=== PATIENT | female | born 1945 | race Caucasian/White ===

== ENCOUNTER 2018-09-23 01:31 | Observation (INO) ==
[2018-09-23 03:35] LABS: Basophils # 0.1 K/mcL (0.0-0.2); Eosinophils # 0.3 K/mcL (0.0-0.6); Hematocrit 35.9 % (35.3-44.9); Hemoglobin 11.5 g/dL (11.5-15.4); Immature Granulocytes % 0.4 % (0-4); Lymphocytes # 1.1 K/mcL (0.6-4.6); Lymphocytes % 14.4 %; Mean Corpuscular Hemoglobin 31.6 pg (28.0-33.3); Mean Corpuscular Volume 98.6 fL (83.0-100.0); Mean Platelet Volume 12.2 fL (9.4-12.4); Monocytes # 0.8 K/mcL (0.0-1.3); Neutrophils # 5.4 K/mcL (1.6-8.9); Platelet Count 159 K/mcL (140-400); Red Blood Count 3.64 M/mcL (3.82-4.97); Red Cell Distribution Width 14.2 % (11.5-14.5); Segmented Neutrophils % 70.2 %
[2018-09-23 03:44] LABS: INR 1.1; Prothrombin Time 12.5 Seconds (9.4-12.1)
[2018-09-23 03:46] LABS: Activated Partial Thrombo Time 29.4 Seconds (26.0-36.0)
[2018-09-23 03:54] LABS: Alanine Aminotransferase 8 Units/L (7-52); Albumin 3.6 g/dL (3.5-5.7); Albumin/Globulin Ratio 1.3 (1.1-2.2); Alkaline Phosphatase 55 Units/L (34-104); Aspartate Amino Transferase 17 Units/L (13-39); BUN/Creatinine Ratio 27 (6-26); Bilirubin,Total 0.6 mg/dL (0.3-1.0); Blood Urea Nitrogen 21 mg/dL (8-23); Calcium 9.4 mg/dL (8.6-10.3); Carbon Dioxide 28 mEq/L (23-29); Chloride 104 mEq/L (98-107); Globulin 2.7 g/dL (2.4-3.5); Glucose 118 mg/dL (70-105); Magnesium 1.9 mg/dL (1.6-2.6); Osmolality,Calculated 290 (280-300); Potassium 3.7 mEq/L (3.5-5.1); Sodium 138 mEq/L (136-145); Total Protein 6.3 g/dL (6.4-8.9); eGFR For Non-African Americans > 60 (> 60)
[2018-09-23] MEDS: Ipratropium/Albuterol Neb 3 ML IH PRN ×2 (04:02→11:04)
[2018-09-23] MEDS ORDERED: Naloxone 0.4 MG/ML INJ IVP PRN (08:10)
[2018-09-23] MEDS ORDERED: Albuterol 2.5 MG/3 ML NEBULIZER IH PRN (08:11)
[2018-09-23] MEDS: Aspirin 81 MG TAB.CHEW PO SCH (08:50)
[2018-09-23] MEDS ORDERED: hydroCHLOROthiazide 25 MG TABLET PO SCH (09:00)
[2018-09-23] MEDS ORDERED: traMADol 50 MG TABLET PO ONE (10:21)
--- NOTE | 2018-09-23 10:33 | Electrocardiograph Report ---
[place] [id number] Test Date: 2018-09-23 Pat Name: Radha Long Department: 110 Room: 05 Gender: F Sheet Metal Apprentice: : 1945 Requested By: Norberto James Order Number: [id number] Reading MD: Adalberto Acosta Measurements Intervals [place] Rate: 65 P: 95 IN: 138 QRS: 55 QRSD: 114 T: 124 QT: 455 QTc: 466 Interpretive Statements SINUS RHYTHM LEFT VENTRICULAR HYPERTROPHY AND ST-T CHANGE Electronically Signed On 09-23-2018 10:31:18 EDT by Adalberto Acosta
--- NOTE | 2018-09-23 12:22 | Internal Med History&Physical ---
Date of Encounter: 09/23/18 Time of Encounter: 09:00 Internal Medicine - H&P: HPI Chief complaint: SOB Admitted From: Emergency Dept History of present illness: Ms. Long is a 73 year old female with history of HFrEF, CAD, COPD/asthma, hypertension, who presented to the outside hospital ED with progressively worsening dyspnea. Associated with orthopnea, ankle swelling, and fatigue. Was worsening for the last week or so. She was recently hospitalized at [facility] ~ 3 weeks ago for similar symptoms. Denies any chest pain, fever/chills, cough, sputum production, palpitation, nausea/vomiting, diaphoresis, abdominal pain, change in bowel habits, or dysuria. Patient states that she is allergic to any loop diuretics in the form of angioedema. At the outside hospital ED, she was afebrile and hemodynamically stable. Saturating 96% on 2-3L of O2. Was briefly placed on BiPaP due to tachypnea but did not tolerate well. Workup showed elevated troponin and BNP of 0.16 and 1549 respectively. Normal WBC. EKG showed atrial paced rhythm without ST-T change concerning for ischemia. CTA of the chest did not demonstrate any evidence of pulmonary embolism but it did show findings compatible with pulmonary edema as well as focal nodule in the right lower lobe. She was loaded with aspirin and given nitroglycerin at the ED and transferred to [facility] for further management. Past Med Surg Social Fam HX - Past Medical History Medical history: cardiomyopathy, CHF, COPD, coronary artery disease, hyperlipidemia, hypertension, myocardial infarction Additional medical history: BRADYCARDIA s/p pacemaker Psychiatric history: anxiety, depression - Past Surgical History Surgical History: hysterectomy, pacemaker/AICD, other - Social History Smoking Status: Light tobacco smoker Smokeless Tobacco Status: No Alcohol use: none Drug use: none - Family History Mother Living Status: Internal Medicine - H&P: Meds Albuterol Neb [Proventil Neb] 2.5 mg IH Q4-6H PRN 03/12/16 [History] Albuterol Sulfate [Ventolin Hfa] 1 puff IH Q4-6H PRN 03/12/16 [History] Aspirin 81 mg PO DAILY 03/12/16 [History] Cholecalciferol (Vitamin D3) [Vitamin D3] 10,000 unit PO QWEEK 03/12/16 [History] hydroCHLOROthiazide [Hydrochlorothiazide] 25 mg PO DAILY 03/12/16 [History] Fluticasone/Salmeterol [Advair 250-50 Diskus] 1 each IH BID #1 blst.w.dev 03/15/16 [Rx] Alendronate Sodium 70 mg PO QWEEK 09/22/18 [History] Docusate [Colace] 100 mg PO DAILY 09/22/18 [History] Losartan [Cozaar] 25 mg PO DAILY 09/22/18 [History] Metoprolol [Lopressor] 12.5 mg PO DAILY 09/22/18 [History] Nitroglycerin [Nitrostat] 0.4 mg SL AD 09/22/18 [History] Ranitidine HCl [Zantac] 300 mg PO HS 09/22/18 [History] Allergy/AdvReac Type Severity Reaction Status Date / Time amlodipine Allergy Anaphylaxis Verified 03/12/16 12:40 codeine Allergy Anaphylaxis Verified 03/12/16 12:40 furosemide [From Lasix] Allergy Anaphylaxis Verified 09/22/18 17:20 lisinopril Allergy Anaphylaxis Verified 03/12/16 12:40 oxycodone [Oxycodone] Allergy Anaphylaxis Verified 03/12/16 12:40 morphine AdvReac Nausea Verified 03/12/16 18:49 All Systems PM: A 10-system review of systems was performed and is negative for pertinent findings except as documented above in the HPI. - Constitutional Vitals: Temp Pulse Resp BP Pulse Ox 98.1 F 64 18 119/72 90 09/23/18 11:41 09/23/18 11:41 09/23/18 11:41 09/23/18 11:41 09/23/18 11:41 Exam: General: Alert and oriented, mild distress. HEENT:EOMI, pupils equal, round and reactive. Cardiovascular:Normal S1 & S2, elevated JVD. Pulse regular. Lungs: Basilar crackles with pitting edema around her ankles bilaterally Abdomen:Soft, non-tender, no rigidity. Extremities:No deformity or swelling Neurological:Normal cognition and motor skills. Non-focal Skin:Normal color, no rash, no lesions. Pulses:Carotid and radial pulses normal +2. Rest of the physical exam is non contributory Internal Med - H&P Results - Labs CBC & Chem 7: 09/23/18 03:13 09/23/18 03:13 Labs: Short CBC 09/23/18 Range/Units 03:13 WBC 7.7 (4.3-11.1) K/mcL Hgb 11.5 (11.5-15.4) g/dL Hct 35.9 (35.3-44.9) % Plt Count 159 (140-400) K/mcL Neutrophils # 5.4 (1.6-8.9) K/mcL BMP 09/23/18 03:13 Sodium 138 Potassium 3.7 Chloride 104 Carbon Dioxide 28 BUN 21 Creatinine 0.78 Glucose 118 H Calcium 9.4 Cardiac Enzymes 09/23/18 09/23/18 Range/Units 03:13 09:58 Troponin I 0.13 H* 0.12 H* (< 0.04) ng/mL Liver Function 09/23/18 Range/Units 03:13 Total Bilirubin 0.6 (0.3-1.0) mg/dL AST 17 (13-39) Units/L ALT 8 (7-52) Units/L Alkaline Phosphatase 55 (34-104) Units/L Albumin 3.6 (3.5-5.7) g/dL - Impressions ITS Impressions Chest X-Ray 09/23/18 02:43 IMPRESSION: Increasing pulmonary edema. D/ / Leonel Ram MD / Leonel Ram MD Interpreting Provider: Leonel Ram MD - Assessment and Plan (1) Acute respiratory failure with hypoxia Current Visit: Yes Status: Acute Assessment and plan: Likely due to decompensated heart failure as below. Less likely to be due to pneumonia or exacerbation of COPD/asthma given her lack of fever, leukocytosis, or significant wheezing/rhonchi on exam mx as per below (2) Acute decompensated heart failure Current Visit: Yes Status: Acute Assessment and plan: CXR/CT finding as well as elevated BNP raises concern for decompensated heart failure allergic to loop diuretics in the form of angioedema on HCTZ at home, continue. Will also add aldactone resume bb. Hold off on losartan to allow for additional diuretics in view of borderline BP troponin elevation likely due to demand ischemia from hypoxic respiratory failure, trending down check echocardiogram fluid restrict 1.5L/day, strict I/O obtain old records from [facility] regarding the recent admission cardiology consult (3) Elevated troponin Current Visit: Yes Status: Acute Assessment and plan: Likely demand ischemia, troponin trended down from 0.16-0.12 EKG atrial paced rhythm continue ASA check echo as above (4) CAD (coronary artery disease) Current Visit: No Status: Chronic Assessment and plan: Resume home meds ?Unsure why patient is not on statin. To follow up on old records Qualifiers: Coronary Disease-Associated Artery/Lesion type: [place] artery [place] vs. transplanted heart: [place] heart Associated angina: without angina Qualified Code(s): I25.10 - Atherosclerotic heart disease of [place] coronary artery w ithout angina pectoris (5) COPD (chronic obstructive pulmonary disease) Current Visit: No Status: Chronic Assessment and plan: Does not appear to be in exacerbation. PRN duoneb and resume home inhalers once reconciled Qualifiers: COPD type: emphysema Emphysema type: unspecified Qualified Code(s): J43.9 - Emphysema, unspecified (6) DVT prophylaxis Current Visit: Yes Status: Acute Assessment and plan: SQ heparin - Time Spent With Patient Total time spent is greater than 50% in coordination of care (as documented) at patient's floor/unit and/or counseling patient: Greater than 35 minutes
[2018-09-23] MEDS: Spironolactone 25 MG TABLET PO SCH (15:14)
[2018-09-23] MEDS: *HR* Heparin 5,000 UNIT/ML VIAL SQ SCH (17:21)
[2018-09-23] MEDS: Famotidine 20 MG TABLET PO SCH (20:06)
[2018-09-24] MEDS: traMADol 50 MG TABLET PO PRN (00:47)
[2018-09-24] MEDS: Ipratropium/Albuterol Neb 3 ML IH PRN ×3 (00:53→13:39)
[2018-09-24 05:10] LABS: Basophils # 0.1 K/mcL (0.0-0.2); Basophils % 1.1 %; Eosinophils # 0.6 K/mcL (0.0-0.6); Eosinophils % 8.5 %; Hematocrit 35.1 % (35.3-44.9); Hemoglobin 11.2 g/dL (11.5-15.4); Immature Granulocytes % 0.3 % (0-4); Lymphocytes # 1.2 K/mcL (0.6-4.6); Lymphocytes % 16.4 %; Mean Corpuscular HGB Conc 31.9 g/dL (31.6-35.5); Mean Corpuscular Hemoglobin 32.1 pg (28.0-33.3); Mean Corpuscular Volume 100.6 fL (83.0-100.0); Mean Platelet Volume 12.6 fL (9.4-12.4); Monocytes # 0.8 K/mcL (0.0-1.3); Monocytes % 10.7 %; Neutrophils # 4.8 K/mcL (1.6-8.9); Platelet Count 154 K/mcL (140-400); Red Blood Count 3.49 M/mcL (3.82-4.97); Red Cell Distribution Width 14.3 % (11.5-14.5)
[2018-09-24 05:30] LABS: BUN/Creatinine Ratio 31 (6-26); Blood Urea Nitrogen 26 mg/dL (8-23); Calcium 9.2 mg/dL (8.6-10.3); Carbon Dioxide 28 mEq/L (23-29); Chloride 105 mEq/L (98-107); Glucose 111 mg/dL (70-105); Osmolality,Calculated 295 (280-300); Potassium 4.1 mEq/L (3.5-5.1); Sodium 140 mEq/L (136-145); eGFR For Non-African Americans > 60 (> 60)
[2018-09-24] MEDS: *HR* Heparin 5,000 UNIT/ML VIAL SQ SCH ×2 (06:51→16:55)
[2018-09-24] MEDS: Aspirin 81 MG TAB.CHEW PO SCH (08:47)
[2018-09-24] MEDS: Spironolactone 25 MG TABLET PO SCH (08:47)
[2018-09-24] MEDS: hydroCHLOROthiazide 25 MG TABLET PO SCH ×2 (10:18→20:09)
--- NOTE | 2018-09-24 12:22 | Internal Med Progress Note ---
Hospitalist Progress Note - Encounter Date of Encounter: 09/24/18 Time of Encounter: 10:45 - Subjective Interval History: States that her breathing is about the same although her ankles feel less swollen today. No fever/chills or nausea/vomiting. - Exam Vitals: Temp Pulse Resp BP Pulse Ox 98.3 F 60 18 106/61 96 09/24/18 11:14 09/24/18 11:14 09/24/18 11:14 09/24/18 11:14 09/24/18 11:14 Exam: General: Alert and oriented, appears less anxious than yesterday Cardiovascular:Normal S1 & S2, Pulse regular. Lungs: Basilar crackles with pitting edema around her ankles bilaterally which is less prominent Abdomen:Soft, non-tender, no rigidity. Neurological:Normal cognition and motor skills. Non-focal - Assessment and Plan (1) Acute respiratory failure with hypoxia Current Visit: Yes Status: Acute Assessment and Plan: Likely due to decompensated heart failure as below. Less likely to be due to pneumonia or exacerbation of COPD/asthma given her lack of fever, leukocytosis, or significant wheezing/rhonchi on exam mx as per below (2) Acute decompensated heart failure Current Visit: Yes Status: Acute Assessment and Plan: CXR/CT finding as well as elevated BNP raises concern for decompensated heart failure allergic to loop diuretics in the form of angioedema on HCTZ 25mg QD at home. Will increase to BID Aldactone added yesterday resume bb. Hold off on losartan to allow for additional diuretics in view of borderline BP troponin elevation likely due to demand ischemia from hypoxic respiratory failure, flat and adynamic echocardiogram showed EF 35-40% with severe LV diastolic dysfunction and global LV systolic dysfunction fluid restrict 1.5L/day, strict I/O obtain old records from [facility] regarding the recent admission follow with cardiology (3) Elevated troponin Current Visit: Yes Status: Acute Assessment and Plan: Likely demand ischemia, troponin trended down from 0.16-0.12 EKG atrial paced rhythm continue ASA echo finding as above (4) CAD (coronary artery disease) Current Visit: No Status: Chronic (5) COPD (chronic obstructive pulmonary disease) Current Visit: No Status: Chronic Assessment and Plan: Does not appear to be in exacerbation. Resume home inhalers (6) DVT prophylaxis Current Visit: Yes Status: Acute Assessment and Plan: SQ heparin - Time Spent with Patient Total time spent is greater than 50% in coordination of care (as documented) at patient's floor/unit and/or counseling patient: 25 - 35 minutes Plan of Care Discussed with: patient (discussed with RN and pharmacist) Internal Medicine: Result - Labs CBC & Chem 7: 09/24/18 04:38 09/24/18 04:38 Labs: Short CBC 09/24/18 Range/Units 04:38 WBC 7.6 (4.3-11.1) K/mcL Hgb 11.2 L (11.5-15.4) g/dL Hct 35.1 L (35.3-44.9) % Plt Count 154 (140-400) K/mcL Neutrophils # 4.8 (1.6-8.9) K/mcL BMP 09/24/18 04:38 Sodium 140 Potassium 4.1 Chloride 105 Carbon Dioxide 28 BUN 26 H Creatinine 0.85 Glucose 111 H Calcium 9.2 - ABG Interpretation ABG results: PT/INR, D-dimer PT 12.5 Seconds (9.4-12.1) H 09/23/18 03:13 - Impressions Impressions Echocardiogram 09/23/18 02:42 Impressions: LVEF 35-40%. Normal LV chamber size, wall thickness. Severe left ventricular diastolic dysfunction. Global left ventricular systolic dysfunction. Grossly normal right ventricular structure and function. Mild mitral regurgitation. Unable to estimate RVSP due to lack of TR jet. A device lead was visualized in the right atrium and right ventricle. Left Ventricular Wall Motion: Rest Echo Findings The apex, apical inferior, mid inferior, basal inferior, apical anterior, mid anterior, basal anterior, apical septal, mid inferior septal, basal inferior septal, apical lateral, mid anterior lateral, basal anterior lateral, mid anterior septal, mid inferior lateral, basal anterior septal and basal inferior lateral alvarado were hypokinetic. Findings: Study Quality * Technically sub-optimal due to poor echocardiographic windows. ECG Findings * Normal sinus rhythm. Left Ventricle * LVEF 35-40%. * Normal LV chamber size, wall thickness. * Severe left ventricular diastolic dysfunction. * Global left ventricular systolic dysfunction. Right Ventricle * Grossly normal right ventricular structure and function. Left Atrium * Severely dilated left atrium. Right Atrium * Mildly dilated right atrium. Aortic Valve * Trileaflet aortic valve. * Mildly sclerotic aortic valve leaflets. * No aortic regurgitation. * No aortic stenosis. Mitral Valve * Moderate mitral annular calcification * Mildly thickened mitral valve leaflets. * Mild mitral regurgitation. * No mitral stenosis. Tricuspid Valve * Normal tricuspid valve structure and function. * No tricuspid regurgitation. * Unable to estimate RVSP due to lack of TR jet. Pulmonic Valve * Normal pulmonic valve structure. * Mild pulmonic regurgitation. Aorta * Normally sized aortic root. Pericardium * The pericardium appears normal. IVC * The IVC is not dilated. * < 50% respiratory change. Pulmonary Artery * Pulmonary artery not well visualized. Device lead * A device lead was visualized in the right atrium and right ventricle. Consult Discharge Plan - Plan Referrals: Fernanda Bender MD [Primary Care Provider] - 10/05/18 10:30 am (4) CAD (coronary artery disease) Qualifiers: Coronary Disease-Associated Artery/Lesion type: [place] artery [place] vs. transplanted heart: [place] heart Associated angina: without angina Qualified Code(s): I25.10 - Atherosclerotic heart disease of [place] coronary artery without angina pectoris (5) COPD (chronic obstructive pulmonary disease) Qualifiers: COPD type: emphysema Emphysema type: unspecified Qualified Code(s): J43.9 - Emphysema, unspecified
[2018-09-24] MEDS ORDERED: Fluticasone Propionate Nasal 50 MCG/SPRAY BOTTLE NS PRN (12:23)
--- NOTE | 2018-09-24 13:19 | Cardiology Consult Note ---
Addendum entered and electronically signed by Harsh Luciano CNP 09/24/18 14:14: Clarification of below, mild troponin elevation in the setting of CHF, COPD exacerbation. Likely demand ischemia. Recent TTE at [facility] showed EF at 25-30%, known ICMP. No further testing at this time. Original Note: <Harsh Luciano - Last Filed: 09/24/18 13:12> Date of Encounter: 09/24/18 Time of Encounter: 13:12 Assessment and Plan (1) Congestive heart failure Current Visit: No Status: Acute Acute on chronic systolic and diastolic CHF. Per [facility] record EF 25-30 %. ICD in place. Likely exacerbated by high salt intake at home. She is eating only microwavable meals. She also did not take prescribed lasix due to concern for allergic reaction. CXR this admit shows increasing pulmonary edema. Hospitalized one month ago at [facility] for CHF. Reports reviewed. She was given IV lasix and discharged home with RX. 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 There is no mention of allergy. Currently on aldactone and HCTZ home medications. Increase aldactone. Net negative 660ml for 24 hours. Consider adding alternative medication such as bumex if needed due to patient concerns. Low sodium diet stressed. Strict I&O and daily weights. Please call with questions or concerns. Patient follows with Dr. Skinner. F/u will be arranged. Qualifiers: Heart failure type: combined systolic and diastolic Heart failure chronicity: acute on chronic Qualified Code(s): I50.43 - Acute on chronic combined systolic (congestive) and diastolic (congestive) heart failure (2) CAD (coronary artery disease) Current Visit: No Status: Chronic H/o CAD Last [facility] in 2013 with mild to moderate non obstructive CAD. No intervention. Atypical chest pain symptoms. EKG shows SR with LVH. No change from EKG in 2017. Troponin negative. Continue asa, statin, and bb. Per [facility] EF 30-35%. Qualifiers: Coronary Disease-Associated Artery/Lesion type: [place] artery [place] vs. transplanted heart: [place] heart Associated angina: without angina Qualified Code(s): I25.10 - Atherosclerotic heart disease of [place] coronary artery without angina pectoris (3) Afib Current Visit: No Status: Acute H/o afib. Per [facility] reports sotalol discontinued due to runs of NSVT. Currently NSR on metoprolol. Patient declined anticoagulation in past and continues to decline. Follows with Dr. Skinner. Qualifiers: Atrial fibrillation type: paroxysmal Qualified Code(s): I48.0 - Paroxysmal atrial fibrillation Discussion w patient/family: The assessment and plan as outlined above was discussed with the patient and/or family members who expressed understanding and agreement. All questions were answered. Thank you for involving us in the care of your patient. Please call with any questions. History of Present Illness Consult date: 09/24/18 Requesting physician: Carson Bansal Consult reason: CHF with loop diuretic allergy Chief complaint: SOB, orthopnea, BLE edema History of present illness: Ms. Long is a 73 year old female with past medical history of CAD, systolic/diastolic CHF, ICD, and atrial fibrillation. She presented from home with the c/o increasing SOB, orthopnea, and BLE edema for one week. SHe was at her urologist office to discuss urinary retention and was recommended to go to ED for concern for CHF. She also c/o intermittent sharp stabbing chest pains lasting a few seconds at a time since admission. She thinks she had tounge and throat swelling with lasix one year ago. She says she feels her throat feels a little edematous now and asks why we are giving it to her here. I reassured her she did not receive lasix here. She was hospitalized one month ago at [facility] for CHF and pnuemonia. [facility] discharge summary reviewed. She was successfully diuresed with lasix and discharged home on oral lasix. When reviewed with patient she is not sure if she was taking and said "they were trying to hide it from me." She states that she is eating TV dinners everyday but try to avoid added salt. Past Med Surg Social Fam HX - Past Medical History Medical history: atrial fibrillation, cardiomyopathy, CHF, COPD, coronary artery disease, hyperlipidemia, hypertension, myocardial infarction Additional medical history: BRADYCARDIA s/p pacemaker Psychiatric history: anxiety, depression - Past Surgical History Surgical History: hysterectomy, pacemaker/AICD, other - Social History Smoking Status: Light tobacco smoker Smokeless Tobacco Status: No Alcohol use: none Drug use: none - Family History Mother Living Status: Medications and Allergies Albuterol Neb [Proventil Neb] 2.5 mg IH Q4-6H PRN 08/31/16 [History] Albuterol Sulfate [Ventolin Hfa] 1 puff IH Q4-6H PRN 03/12/16 [History] Aspirin 81 mg PO DAILY 03/12/16 [History] Cholecalciferol (Vitamin D3) [Vitamin D3] 10,000 unit PO TU 03/12/16 [History] hydroCHLOROthiazide [Hydrochlorothiazide] 25 mg PO DAILY 03/12/16 [History] Alendronate Sodium 70 mg PO TH 09/22/18 [History] Docusate [Colace] 100 mg PO HS 09/22/18 [History] Losartan [Cozaar] 25 mg PO DAILY 09/22/18 [History] Metoprolol [Lopressor] 12.5 mg PO DAILY 09/22/18 [History] Nitroglycerin [Nitrostat] 0.4 mg SL AD 09/22/18 [History] Ranitidine HCl [Zantac] 300 mg PO HS 09/22/18 [History] Fluticasone Propionate Nasal [Flonase] 2 spr NS DAILY PRN 09/24/18 [History] Allergy/AdvReac Type Severity Reaction Status Date / Time amlodipine Allergy Anaphylaxis Verified 09/24/18 09:33 codeine Allergy Anaphylaxis Verified 09/24/18 09:33 furosemide [From Lasix] Allergy Anaphylaxis Verified 09/22/18 17:20 lisinopril Allergy Anaphylaxis Verified 09/24/18 09:33 oxycodone [Oxycodone] Allergy Anaphylaxis Verified 09/24/18 09:33 morphine AdvReac Nausea Verified 09/24/18 09:33 All Systems Review: The remainder of the systems were reviewed and are negative Physical Examination Vital Signs, Last 4 Hours Temp Pulse Resp BP Pulse Ox 09/24/18 11:14 98.3 F 60 18 106/61 96 General: Conversant, No Apparent Distress HEENT: Atraumatic, Normocephaly, Mucus Membranes Moist Neck: No JVD, Normal carotid pulses Cardiac: Reg Rate and Rhythm, Normal S1 and S2, No Murmur Lungs: Normal Breath Sounds, No Wheeze, Rales, Rhonchi Neuro: Alert and responsive, No focal deficits noted Abdomen: Soft, Non-Tender Skin: No rashes noted on visualized skin Musculoskeletal: No Chest Wall Tenderness Extremities: No Clubbing, No Cyanosis, Normal Pulses, Other (Trace to 1+ pitting ankle edema) Results 09/24/18 04:38 09/24/18 04:38 Lab Results 09/24/18 09/24/18 04:38 04:38 WBC 7.6 Hgb 11.2 L Hct 35.1 L Plt Count 154 Sodium 140 Potassium 4.1 Chloride 105 Carbon Dioxide 28 BUN 26 H Creatinine 0.85 Glucose 111 H Calcium 9.2 Magnesium 2.0 - Imaging and Cardiology Echo: report reviewed - EKG Interpretation EKG results cardiology: personally reviewed Consult Discharge Plan - Plan Referrals: Fernanda Bender MD [Primary Care Provider] - 10/05/18 10:30 am <Key Llanos - Last Filed: 09/24/18 16:12> Date of Encounter: 09/24/18 - Attending Attestation I examined this patient and my medical decision-making was reviewed with the ASSISTANT BRANCH OPERATIONS MANAGER. I agree with the documented findings, disposition and treatment plan as described. Assessment and Plan Discussion w patient/family: The assessment and plan as outlined above was discussed with the patient and/or family members who expressed understanding and agreement. All questions were answered. Thank you for involving us in the care of your patient. Please call with any questions. History of Present Illness History of present illness: Ms. Long is a 73 year old female All Systems Review: The remainder of the systems were reviewed and are negative Physical Examination Vital Signs, Last 4 Hours Resp Pulse Ox 09/24/18 13:43 18 96 Results 09/24/18 04:38 09/24/18 04:38 Lab Results 09/24/18 09/24/18 04:38 04:38 WBC 7.6 Hgb 11.2 L Hct 35.1 L Plt Count 154 Sodium 140 Potassium 4.1 Chloride 105 Carbon Dioxide 28 BUN 26 H Creatinine 0.85 Glucose 111 H Calcium 9.2 Magnesium 2.0
[2018-09-24] MEDS ORDERED: Spironolactone 25 MG TABLET PO ONE (13:40)
[2018-09-24] MEDS: Famotidine 20 MG TABLET PO SCH (20:09)
[2018-09-25] MEDS: traMADol 50 MG TABLET PO PRN (01:42)
[2018-09-25] MEDS: Ipratropium/Albuterol Neb 3 ML IH PRN (05:20)
[2018-09-25] MEDS: *HR* Heparin 5,000 UNIT/ML VIAL SQ SCH ×2 (05:38→18:04)
[2018-09-25 06:56] LABS: Hematocrit 35.1 % (35.3-44.9); Hemoglobin 11.4 g/dL (11.5-15.4); Mean Corpuscular HGB Conc 32.5 g/dL (31.6-35.5); Mean Corpuscular Hemoglobin 32.2 pg (28.0-33.3); Mean Corpuscular Volume 99.2 fL (83.0-100.0); Mean Platelet Volume 12.3 fL (9.4-12.4); Platelet Count 146 K/mcL (140-400); Red Blood Count 3.54 M/mcL (3.82-4.97); Red Cell Distribution Width 13.7 % (11.5-14.5)
[2018-09-25 07:16] LABS: BUN/Creatinine Ratio 32 (6-26); Blood Urea Nitrogen 28 mg/dL (8-23); Calcium 9.6 mg/dL (8.6-10.3); Carbon Dioxide 31 mEq/L (23-29); Chloride 101 mEq/L (98-107); Glucose 116 mg/dL (70-105); Magnesium 2.1 mg/dL (1.6-2.6); Osmolality,Calculated 294 (280-300); Potassium 4.2 mEq/L (3.5-5.1); Sodium 139 mEq/L (136-145); eGFR For Non-African Americans > 60 (> 60)
[2018-09-25] MEDS: hydroCHLOROthiazide 25 MG TABLET PO SCH ×2 (09:07→19:46)
[2018-09-25] MEDS: Spironolactone 25 MG TABLET PO SCH (09:08)
[2018-09-25] MEDS: Aspirin 81 MG TAB.CHEW PO SCH (09:08)
[2018-09-25] MEDS ORDERED: predniSONE 20 MG TABLET PO SCH (10:00)
[2018-09-25] MEDS: Ipratropium/Albuterol Neb 3 ML IH SCH ×3 (11:06→21:25)
[2018-09-25 11:16] LABS: Adenovirus Not Detected (Not Detect); Bordetella Pertussis Not Detected (Not Detect); Chlamydophila pneumoniae Not Detected (Not Detect); Coronavirus 229E Not Detected (Not Detect); Coronavirus HKU1 Not Detected (Not Detect); Coronavirus NL63 Not Detected (Not Detect); Coronavirus OC43 Not Detected (Not Detect); Human Metapneumovirus Not Detected (Not Detect); Human Rhinovirus/Enterovirus Not Detected (Not Detect); Influenza A Subtype 2009 H1 Not Detected (Not Detect); Influenza A Untypeable Not Detected (Not Detect); Influenza B Not Detected (Not Detect); Mycoplasma pneumoniae Not Detected (Not Detect); Parainfluenza Virus 1 Not Detected (Not Detect); Parainfluenza Virus 2 Not Detected (Not Detect); Parainfluenza Virus 3 Not Detected (Not Detect); Parainfluenza Virus 4 Not Detected (Not Detect); Respiratory Syncytial Virus Not Detected (Not Detect)
--- NOTE | 2018-09-25 11:31 | Internal Med Progress Note ---
Hospitalist Progress Note - Encounter Date of Encounter: 09/25/18 Time of Encounter: 10:30 - Subjective Interval History: Patient reports improvement in her leg swelling but developed wheezing this morning. Also complains of mild sore throat and nasal congestion. No fever/chills, chest pain, diaphoresis, or N/V. - Exam Vitals: Temp Pulse Resp BP Pulse Ox 97.7 F 62 18 134/66 95 09/25/18 07:26 09/25/18 07:26 09/25/18 07:26 09/25/18 07:26 09/25/18 07:26 Exam: General: Alert and oriented, appears less anxious Cardiovascular:Normal S1 & S2, Pulse regular. Lungs: Less prominent crackles at the lung bases but has bilateral scattered wheezes Abdomen:Soft, non-tender, no rigidity. Neurological:Normal cognition and motor skills. Non-focal - Assessment and Plan (1) Acute respiratory failure with hypoxia Current Visit: Yes Status: Acute Assessment and Plan: Likely due to decompensated heart failure +/- asthma exacerbation mx as per below (2) Acute decompensated heart failure Current Visit: Yes Status: Acute Assessment and Plan: CXR/CT finding as well as elevated BNP raises concern for decompensated heart failure ?allergic to loop diuretics in the form of angioedema HCTZ increased to 25mg BID and aldactone increased to 25mg QD. -605ml yesterday. Appreciate cardiology input according to the OSH notes that cardiology was able to access, there is no mention of Lasix allergy and was apparently given IV lasix at [facility] recently. NEvertheless, pt strongly refuses lasix but would consider bumex if her leg swelling worsens resume bb. Hold off on losartan to allow for additional diuretics in view of borderline BP troponin elevation likely due to demand ischemia from hypoxic respiratory failure, flat and adynamic echocardiogram showed EF 35-40% with severe LV diastolic dysfunction and global LV systolic dysfunction (which is actually better than 25-30% seen at [facility] recently) fluid restrict 1.5L/day, strict I/O pending records from [facility] regarding the recent admission follow with cardiology (3) Elevated troponin Current Visit: Yes Status: Acute Assessment and Plan: Likely demand ischemia, troponin trended down from 0.16-0.12 EKG atrial paced rhythm continue ASA echo finding as above (4) CAD (coronary artery disease) Current Visit: No Status: Chronic Assessment and Plan: Resume home meds ?Unsure why patient is not on statin at home. Started by cardiology (5) COPD (chronic obstructive pulmonary disease) Current Visit: No Status: Chronic Assessment and Plan: has hx of asthma/COPD, slight wheezing noted today associated with URI symptoms check RIP steroid, bronchodilators (6) DVT prophylaxis Current Visit: Yes Status: Acute Assessment and Plan: SQ heparin - Time Spent with Patient Total time spent is greater than 50% in coordination of care (as documented) at patient's floor/unit and/or counseling patient: 25 - 35 minutes Plan of Care Discussed with: patient (discussed with RN) Internal Medicine: Result - Labs CBC & Chem 7: 09/25/18 06:45 09/25/18 06:45 Labs: Short CBC 09/25/18 Range/Units 06:45 WBC 7.6 (4.3-11.1) K/mcL Hgb 11.4 L (11.5-15.4) g/dL Hct 35.1 L (35.3-44.9) % Plt Count 146 (140-400) K/mcL BMP 09/25/18 06:45 Sodium 139 Potassium 4.2 Chloride 101 Carbon Dioxide 31 H BUN 28 H Creatinine 0.88 Glucose 116 H Calcium 9.6 - ABG Interpretation ABG results: PT/INR, D-dimer PT 12.5 Seconds (9.4-12.1) H 09/23/18 03:13 - Impressions Impressions Echocardiogram 09/23/18 02:42 Impressions: LVEF 35-40%. Normal LV chamber size, wall thickness. Severe left ventricular diastolic dysfunction. Global left ventricular systolic dysfunction. Grossly normal right ventricular structure and function. Mild mitral regurgitation. Unable to estimate RVSP due to lack of TR jet. A device lead was visualized in the right atrium and right ventricle. Left Ventricular Wall Motion: Rest Echo Findings The apex, apical inferior, mid inferior, basal inferior, apical anterior, mid anterior, basal anterior, apical septal, mid inferior septal, basal inferior septal, apical lateral, mid anterior lateral, basal anterior lateral, mid anterior septal, mid inferior lateral, basal anterior septal and basal inferior lateral alvarado were hypokinetic. Findings: Study Quality * Technically sub-optimal due to poor echocardiographic windows. ECG Findings * Normal sinus rhythm. Left Ventricle * LVEF 35-40%. * Normal LV chamber size, wall thickness. * Severe left ventricular diastolic dysfunction. * Global left ventricular systolic dysfunction. Right Ventricle * Grossly normal right ventricular structure and function. Left Atrium * Severely dilated left atrium. Right Atrium * Mildly dilated right atrium. Aortic Valve * Trileaflet aortic valve. * Mildly sclerotic aortic valve leaflets. * No aortic regurgitation. * No aortic stenosis. Mitral Valve * Moderate mitral annular calcification * Mildly thickened mitral valve leaflets. * Mild mitral regurgitation. * No mitral stenosis. Tricuspid Valve * Normal tricuspid valve structure and function. * No tricuspid regurgitation. * Unable to estimate RVSP due to lack of TR jet. Pulmonic Valve * Normal pulmonic valve structure. * Mild pulmonic regurgitation. Aorta * Normally sized aortic root. Pericardium * The pericardium appears normal. IVC * The IVC is not dilated. * < 50% respiratory change. Pulmonary Artery * Pulmonary artery not well visualized. Device lead * A device lead was visualized in the right atrium and right ventricle. Consult Discharge Plan - Plan Referrals: Fernanda Bender MD [Primary Care Provider] - 10/05/18 10:30 am (4) CAD (coronary artery disease) Qualifiers: Coronary Disease-Associated Artery/Lesion type: [place] artery [place] vs. transplanted heart: [place] heart Associated angina: without angina Qualified Code(s): I25.10 - Atherosclerotic heart disease of [place] coronary artery without angina pectoris (5) COPD (chronic obstructive pulmonary disease) Qualifiers: COPD type: emphysema Emphysema type: unspecified Qualified Code(s): J43.9 - Emphysema, unspecified
[2018-09-25] MEDS: MethylPREDNISolone 40 MG/ML VIAL IVP SCH ×2 (12:59→18:04)
[2018-09-25] MEDS: Famotidine 20 MG TABLET PO SCH (19:47)
[2018-09-26 01:04] LABS: Basophils % 0.4 %; Eosinophils % 0.2 %; Hematocrit 33.6 % (35.3-44.9); Immature Granulocytes % 0.7 % (0-4); Lymphocytes # 0.5 K/mcL (0.6-4.6); Lymphocytes % 11.9 %; Mean Corpuscular HGB Conc 32.7 g/dL (31.6-35.5); Mean Corpuscular Hemoglobin 31.9 pg (28.0-33.3); Mean Corpuscular Volume 97.4 fL (83.0-100.0); Mean Platelet Volume 12.7 fL (9.4-12.4); Monocytes # 0.1 K/mcL (0.0-1.3); Neutrophils # 3.9 K/mcL (1.6-8.9); Platelet Count 145 K/mcL (140-400); Red Blood Count 3.45 M/mcL (3.82-4.97); Red Cell Distribution Width 13.3 % (11.5-14.5); Segmented Neutrophils % 84.8 %
[2018-09-26] MEDS: Ipratropium/Albuterol Neb 3 ML IH SCH ×6 (01:06→20:29)
[2018-09-26 01:24] LABS: BUN/Creatinine Ratio 34 (6-26); Blood Urea Nitrogen 33 mg/dL (8-23); Calcium 9.1 mg/dL (8.6-10.3); Carbon Dioxide 27 mEq/L (23-29); Chloride 100 mEq/L (98-107); Glucose 231 mg/dL (70-105); Osmolality,Calculated 297 (280-300); Potassium 3.8 mEq/L (3.5-5.1); Sodium 136 mEq/L (136-145); eGFR For Non-African Americans 56 (> 60)
[2018-09-26] MEDS: MethylPREDNISolone 40 MG/ML VIAL IVP SCH ×2 (05:47→17:36)
[2018-09-26] MEDS: *HR* Heparin 5,000 UNIT/ML VIAL SQ SCH ×2 (05:47→17:35)
[2018-09-26] MEDS: Aspirin 81 MG TAB.CHEW PO SCH (08:33)
[2018-09-26] MEDS: hydroCHLOROthiazide 25 MG TABLET PO SCH ×2 (08:34→21:28)
[2018-09-26] MEDS: Spironolactone 25 MG TABLET PO SCH (08:34)
--- NOTE | 2018-09-26 12:26 | Internal Med Progress Note ---
Hospitalist Progress Note - Encounter Date of Encounter: 09/26/18 Time of Encounter: 11:00 - Subjective Interval History: Patient reports improvement in her breathing as well as ankle swelling bilaterally. Continues to remain on 2 L of oxygen but saturating above 96%. No chest pain, cough, or sputum production. No episode of fever overnight. - Exam Vitals: Temp Pulse Resp BP Pulse Ox 97.8 F 69 18 145/90 95 09/26/18 11:23 09/26/18 11:23 09/26/18 12:02 09/26/18 11:23 09/26/18 12:02 Exam: General: Alert and oriented, appears less anxious Cardiovascular:Normal S1 & S2, Pulse regular. Lungs: Mostly clear with minimal crackles at the left lung base. Unable to appreciate wheezes. Abdomen:Soft, non-tender, no rigidity. Neurological:Normal cognition and motor skills. Non-focal - Assessment and Plan (1) Acute respiratory failure with hypoxia Current Visit: Yes Status: Acute Assessment and Plan: Likely due to decompensated heart failure +/- asthma exacerbation mx as per below wean O2, if able to be weaned to room air, would perform 6 min walk test to see if she would qualify for O2 (2) Acute decompensated heart failure Current Visit: Yes Status: Acute Assessment and Plan: CXR/CT finding as well as elevated BNP raises concern for decompensated heart failure troponin elevation likely due to demand ischemia from hypoxic respiratory failure, flat and adynamic ?allergic to loop diuretics in the form of angioedema clinically improving on increased dosage of HCTZ and the addition of aldactone. according to the OSH notes that cardiology team was able to access, there is no mention of Lasix allergy and was apparently given IV lasix at [facility] recently. Nevertheless, pt strongly refuses lasix but would consider bumex if her leg swelling worsens resume bb. Would resume losartan from tomorrow as BP had improved echocardiogram showed EF 35-40% with severe LV diastolic dysfunction and global LV systolic dysfunction (which is actually better than 25-30% seen at [facility] recently) fluid restrict 1.5L/day, strict I/O pending records from [facility] regarding the recent admission follow with cardiology (3) COPD (chronic obstructive pulmonary disease) Current Visit: No Status: Chronic Assessment and Plan: has hx of asthma/COPD, slight wheezing noted yesterday associated with URI symptoms Respiratory viral panel negative continue steroid, bronchodilators (4) Elevated troponin Current Visit: Yes Status: Acute Assessment and Plan: Likely demand ischemia, troponin trended down from 0.16-0.12 EKG atrial paced rhythm continue ASA echo finding as above (5) CAD (coronary artery disease) Current Visit: No Status: Chronic Assessment and Plan: Resume home meds ?Unsure why patient is not on statin at home. Started by cardiology (6) DVT prophylaxis Current Visit: Yes Status: Acute Assessment and Plan: SQ heparin - Summary of Assessment and Plan Summary of Assessment and Plan: Stable to transfer out of [facility]. - Time Spent with Patient Total time spent is greater than 50% in coordination of care (as documented) at patient's floor/unit and/or counseling patient: 25 - 35 minutes Plan of Care Discussed with: patient (discussed with RN as well) Internal Medicine: Result - Labs CBC & Chem 7: 09/26/18 00:32 09/26/18 00:32 Labs: Short CBC 09/26/18 Range/Units 00:32 WBC 4.5 (4.3-11.1) K/mcL Hgb 11.0 L (11.5-15.4) g/dL Hct 33.6 L (35.3-44.9) % Plt Count 145 (140-400) K/mcL Neutrophils # 3.9 (1.6-8.9) K/mcL BMP 09/26/18 00:32 Sodium 136 Potassium 3.8 Chloride 100 Carbon Dioxide 27 BUN 33 H Creatinine 0.98 Glucose 231 H Calcium 9.1 - ABG Interpretation ABG results: PT/INR, D-dimer PT 12.5 Seconds (9.4-12.1) H 09/23/18 03:13 Consult Discharge Plan - Plan Referrals: Fernanda Bender MD [Primary Care Provider] - 10/05/18 10:30 am (3) COPD (chronic obstructive pulmonary disease) Qualifiers: COPD type: emphysema Emphysema type: unspecified Qualified Code(s): J43.9 - Emphysema, unspecified (5) CAD (coronary artery disease) Qualifiers: Coronary Disease-Associated Artery/Lesion type: [place] artery [place] vs. transplanted heart: [place] heart Associated angina: without angina Qualified Code(s): I25.10 - Atherosclerotic heart disease of [place] coronary artery without angina pectoris
[2018-09-26] MEDS: Fluticasone Propionate Nasal 50 MCG/SPRAY BOTTLE NS SCH (17:13)
[2018-09-26] MEDS: Famotidine 20 MG TABLET PO SCH (21:28)
[2018-09-26] MEDS: traMADol 50 MG TABLET PO PRN (21:51)
[2018-09-27] MEDS: traMADol 50 MG TABLET PO PRN (03:48)
[2018-09-27] MEDS: Ipratropium/Albuterol Neb 3 ML IH SCH ×6 (03:57→20:10)
[2018-09-27] MEDS: *HR* Heparin 5,000 UNIT/ML VIAL SQ SCH ×2 (06:21→17:59)
[2018-09-27] MEDS: MethylPREDNISolone 40 MG/ML VIAL IVP SCH ×2 (06:21→17:58)
[2018-09-27] MEDS: Spironolactone 25 MG TABLET PO SCH (08:23)
[2018-09-27] MEDS: Aspirin 81 MG TAB.CHEW PO SCH (08:23)
[2018-09-27] MEDS: hydroCHLOROthiazide 25 MG TABLET PO SCH (08:23)
[2018-09-27] MEDS: Fluticasone Propionate Nasal 50 MCG/SPRAY BOTTLE NS SCH (08:24)
[2018-09-27] MEDS ORDERED: Metoprolol XL (24 HR) Succ 25 MG TAB.ER.24H PO SCH (09:00)
--- NOTE | 2018-09-27 09:56 | Discharge Summary ---
- NOTES TO OUTPATIENT PROVIDER Notes to Outpatient Provider: Patient was admitted for hypoxic respiratory failure secondary to decompensated heart failure as well as mild COPD/asthma exacerbation. Self-reported allergic reaction to lasix and all the other loop diuretics (although cardiology commented that it was never formally mentioned in previous notes) and was reluctant to take anything else but HCTZ and Aldactone. She clinically improved after 5 days of inpatient treatment with 2L O2 requirement and will be discharged home on tapering course of steroid and home O2. Echocardiogram showed EF of 35-40% which is actually better compared to the one she had it done at [facility] recently. Follow-up with Dr. Skinner as outpatient. Date of Encounter: 09/27/18 Time of Encounter: 07:30 - Discharge Diagnosis (1) Acute respiratory failure with hypoxia Priority: Primary Status: Acute (2) Acute decompensated heart failure Priority: Secondary Status: Acute (3) COPD (chronic obstructive pulmonary disease) Priority: Secondary Status: Chronic Qualifiers: COPD type: emphysema Emphysema type: unspecified Qualified Code(s): J43.9 - Emphysema, unspecified (4) Elevated troponin Priority: Secondary Status: Acute (5) CAD (coronary artery disease) Priority: Secondary Status: Chronic Qualifiers: Coronary Disease-Associated Artery/Lesion type: [place] artery [place] vs. transplanted heart: [place] heart Associated angina: without angina Qualified Code(s): I25.10 - Atherosclerotic heart disease of [place] coronary artery without angina pectoris (6) DVT prophylaxis Priority: Secondary Status: Acute Hospital course: Ms. Long is a 73 year old female who was admitted for hypoxic respiratory failure secondary to decompensated heart failure as well as mild COPD/asthma exacerbation. Self-reported allergic reaction to lasix and all the other loop diuretics (although cardiology commented that it was never formally mentioned in previous notes) and was reluctant to take anything else but HCTZ and Aldactone. She clinically improved after 5 days of inpatient treatment with 2L O2 requirement and will be discharged home on tapering course of steroid and home O2. Echocardiogram showed EF of 35-40% which is actually better compared to the one she had it done at [facility] recently. Follow-up with Dr. Skinner as outpatient. Discharge discussed with: patient, nurse, social work, case management - Time Spent with Patient Total time spent providing and/or coordinating discharge services: 35 mins - Discharge Medications Prescriptions: New GuaiFENesin ER [Mucinex] 600 mg PO BID #10 tbbp.12hr hydroCHLOROthiazide [Hydrochlorothiazide] 25 mg PO BID #60 tablet predniSONE [PredniSONE] 40 mg PO DAILY #6 tablet Spironolactone [Aldactone] 25 mg PO DAILY #30 tablet Continue Aspirin 81 mg PO DAILY Cholecalciferol (Vitamin D3) [Vitamin D3] 10,000 unit PO TU Albuterol Sulfate [Ventolin Hfa] 1 puff IH Q4-6H PRN PRN Reason: Shortness Of Breath Albuterol Neb [Proventil Neb] 2.5 mg IH Q4-6H PRN PRN Reason: Shortness Of Breath/Wheezing Fluticasone Propionate Nasal [Flonase] 2 spr NS DAILY PRN PRN Reason: Allergy Symptoms Metoprolol XL (24 HR) Succ [Toprol Xl] 12.5 mg PO DAILY Ranitidine HCl [Zantac] 300 mg PO HS Docusate [Colace] 100 mg PO HS Losartan [Cozaar] 25 mg PO DAILY Alendronate Sodium 70 mg PO TH Nitroglycerin [Nitrostat] 0.4 mg SL AD Discontinued hydroCHLOROthiazide [Hydrochlorothiazide] 25 mg PO DAILY Home Medications: Albuterol Neb [Proventil Neb] 2.5 mg IH Q4-6H PRN 03/12/16 [History] Albuterol Sulfate [Ventolin Hfa] 1 puff IH Q4-6H PRN 03/12/16 [History] Aspirin 81 mg PO DAILY 03/12/16 [History] Cholecalciferol (Vitamin D3) [Vitamin D3] 10,000 unit PO TU 03/12/16 [History] Alendronate Sodium 70 mg PO TH 09/22/18 [History] Docusate [Colace] 100 mg PO HS 09/22/18 [History] Losartan [Cozaar] 25 mg PO DAILY 09/22/18 [History] Nitroglycerin [Nitrostat] 0.4 mg SL AD 09/22/18 [History] Ranitidine HCl [Zantac] 300 mg PO HS 09/22/18 [History] Fluticasone Propionate Nasal [Flonase] 2 spr NS DAILY PRN 09/24/18 [History] GuaiFENesin ER [Mucinex] 600 mg PO BID #10 tbbp.12hr 09/27/18 [Rx] Metoprolol XL (24 HR) Succ [Toprol Xl] 12.5 mg PO DAILY 09/27/18 [History] Spironolactone [Aldactone] 25 mg PO DAILY #30 tablet 09/27/18 [Rx] hydroCHLOROthiazide [Hydrochlorothiazide] 25 mg PO BID #60 tablet 09/27/18 [Rx] predniSONE [PredniSONE] 40 mg PO DAILY #6 tablet 09/27/18 [Rx] Allergies/Adverse Reactions: Allergy/AdvReac Type Severity Reaction Status Date / Time amlodipine Allergy Anaphylaxis Verified 09/24/18 09:33 codeine Allergy Anaphylaxis Verified 09/24/18 09:33 furosemide [From Lasix] Allergy Anaphylaxis Verified 09/22/18 17:20 lisinopril Allergy Anaphylaxis Verified 09/24/18 09:33 oxycodone [Oxycodone] Allergy Anaphylaxis Verified 09/24/18 09:33 morphine AdvReac Nausea Verified 09/24/18 09:33 Date of admission: 09/23/18 01:31 Primary care physician: Fernanda Bender MD Consults: 09/23/18 02:02 Consult to Nutrition [CONS] Routine Comment: Consulting Provider: NUTRITION Reason for Dietary Consult: MST Score Consult to Acetylene Plant Operator [CONS] Routine Reason for SW Consult: Discharge needs 09/23/18 11:20 Consult to Cardiology [CONS] Routine Comment: Consulting Provider: Cardiology Christen Reason for Consult: decompensated heart failure, allergic to lasix/bumex/torsemide Call Completed: Yes 09/26/18 12:29 Consult to Occupational Therapy [CONS] Routine Comment: Evaluate, develop and implement POC Reason for Consult: CHF, deconditioning Does patient have active BEDREST order?: No Is patient medically & hemodynamically stable?: Yes Consult to Physical Therapy [CONS] Routine Comment: Evaluate, develop and implement POC Reason for Consult: CHF, deconditioning Does patient have active BEDREST order?: No Is patient medically & hemodynamically stable?: Yes - Constitutional Vitals: Temp Pulse Resp BP Pulse Ox 97.8 F 83 18 121/69 98 09/27/18 07:49 09/27/18 07:49 09/27/18 07:59 09/27/18 07:49 09/27/18 07:59 Exam: General: Alert and oriented, appears less anxious Cardiovascular:Normal S1 & S2, Pulse regular. Lungs: Mostly clear with minimal crackles at the left lung base. Unable to appreciate wheezes. Abdomen:Soft, non-tender, no rigidity. Neurological:Normal cognition and motor skills. Non-focal - Patient Status Disposition: Home Health Service Functional capacity at discharge: independent ambulation Overall status at discharge: patient is progressing back to baseline - Discharge Instructions Instructions: Heart Failure (DC), Acute Respiratory Distress Syndrome (DC), Atrial Fibrillation (DC), Anxiety (DC), Chronic Obstructive Pulmonary Disease (DC) Follow Up With: Fernanda Bender MD [Primary Care Provider] - 10/05/18 10:30 am Nick Skinner MD [Partnered Physician] - Additional Instructions: HCTZ increased to 25mg BID and Aldactone 25mg QD was added Reluctant to take loop diuretics but cardiology did recommend possible addition of Bumex. Follow with Dr. Skinner as outpatient Complete PO Prednisone as prescribed Qualified for 2 L of oxygen at home - Diet and Activity Activity: resume usual activities as tolerated Diet: low salt diet
--- NOTE | 2018-09-27 10:03 | Physician Discharge Referral ---
Home Health/Hosp Referral Info Transfer to: Home Health - Diagnosis (1) Acute respiratory failure with hypoxia Priority: Primary Status: Acute (2) Acute decompensated heart failure Priority: Secondary Status: Acute (3) COPD (chronic obstructive pulmonary disease) Priority: Secondary Status: Chronic (4) Elevated troponin Priority: Secondary Status: Acute (5) CAD (coronary artery disease) Priority: Secondary Status: Chronic (6) DVT prophylaxis Priority: Secondary Status: Acute - Respiratory Orders Oxygen / L per min (2L) Smoking Cessation: Smoking cessation has been advised. For more information, call the [place] Tobacco Quit Line at 6-460-PRBI-NOW. - Diet/Nutrition Diet/Nutrition Orders: No Added Salt ([place]) - Services Needed Following services are medically necessary services: Nursing, Home Health Aide, Physical Therapy, Occupational Therapy - Transfer Medications Prescriptions: GuaiFENesin ER [Mucinex] 600 mg PO BID #10 tbbp.12hr hydroCHLOROthiazide [Hydrochlorothiazide] 25 mg PO BID #60 tablet predniSONE [PredniSONE] 40 mg PO DAILY #6 tablet Spironolactone [Aldactone] 25 mg PO DAILY #30 tablet Home Medications: Albuterol Neb [Proventil Neb] 2.5 mg IH Q4-6H PRN 03/12/16 [History] Albuterol Sulfate [Ventolin Hfa] 1 puff IH Q4-6H PRN 03/12/16 [History] Aspirin 81 mg PO DAILY 03/12/16 [History] Cholecalciferol (Vitamin D3) [Vitamin D3] 10,000 unit PO TU 03/12/16 [History] Alendronate Sodium 70 mg PO TH 09/22/18 [History] Docusate [Colace] 100 mg PO HS 09/22/18 [History] Losartan [Cozaar] 25 mg PO DAILY 09/22/18 [History] Nitroglycerin [Nitrostat] 0.4 mg SL AD 09/22/18 [History] Ranitidine HCl [Zantac] 300 mg PO HS 09/22/18 [History] Fluticasone Propionate Nasal [Flonase] 2 spr NS DAILY PRN 09/24/18 [History] GuaiFENesin ER [Mucinex] 600 mg PO BID #10 tbbp.12hr 09/27/18 [Rx] Metoprolol XL (24 HR) Succ [Toprol Xl] 12.5 mg PO DAILY 09/27/18 [History] Spironolactone [Aldactone] 25 mg PO DAILY #30 tablet 09/27/18 [Rx] hydroCHLOROthiazide [Hydrochlorothiazide] 25 mg PO BID #60 tablet 09/27/18 [Rx] predniSONE [PredniSONE] 40 mg PO DAILY #6 tablet 09/27/18 [Rx] Allergies/Adverse Reactions: Allergy/AdvReac Type Severity Reaction Status Date / Time amlodipine Allergy Anaphylaxis Verified 09/24/18 09:33 codeine Allergy Anaphylaxis Verified 09/24/18 09:33 furosemide [From Lasix] Allergy Anaphylaxis Verified 09/22/18 17:20 lisinopril Allergy Anaphylaxis Verified 09/24/18 09:33 oxycodone [Oxycodone] Allergy Anaphylaxis Verified 09/24/18 09:33 morphine AdvReac Nausea Verified 09/24/18 09:33 Certification: Further, I certify that my clinical findings support that this patient is homebound (i.e. absences from home require considerable and taxing effort and are for medical reasons or [employer] or infrequently or short duration when for other reasons) because: Homebound Reason: Patient requires assistance of a person or device to safely leave home Attestation: My signature below is to certify that this patient is under my care and that I, or nurse practitioner, or a physician's family practice physician assistant working with me, has a [id number] encounter with this patient.
[2018-09-27 16:00] VITALS: BP 119/61
== END 2018-09-27 20:18 | disposition home health service (06) ==
LOC: 2NNU → SUATTDRO 01:31 → 2ANU 09-26 18:09
PROVIDERS: ADMIT Pediatrics; ATTEND Internal Medicine